=== PATIENT | female | born 1945 | race Caucasian/White ===

== ENCOUNTER 2016-12-03 06:43 | Day surgery (SDC) | payer MEDICARE ==
[2016-12-03] MEDS ORDERED: Lactated Ringers 1,000 ML IV SCH (07:30)
[2016-12-03] MEDS ORDERED: fentaNYL 100 MCG/2 ML SDV ONE (07:35)
[2016-12-03] MEDS ORDERED: Propofol 200 MG/20 ML SDV ONE ×2 (07:35→08:51)
[2016-12-03] MEDS ORDERED: Midazolam 1 MG/ML 2 ML SDV ONE (07:35)
[2016-12-03 10:32] VITALS: BP 145/73
--- NOTE | 2016-12-03 14:48 | OR ---
DATE OF PROCEDURE: 12/03/2016 PREOPERATIVE DIAGNOSIS: History of adenomatous colon polyps. POSTOPERATIVE DIAGNOSES: Diverticulosis; small colon polyps, 10 cm from the anal verge; history of adenomatous polyps. PROCEDURE: Colonoscopy to the cecum with biopsy resection of the small polyp at 10 cm from the anal verge. ANESTHESIA: IV anesthesia with monitored anesthesia care. INDICATIONS: This 71-year-old white female is here for a colonoscopy. Her last colonoscopic exam was done about three years ago. That just showed diverticulosis. A year prior to that, multiple polyps were removed, primarily hyperplastic. However, there were also adenomas polyps involved. I counseled her for a colonoscopy with possible biopsy and/or polypectomy including risks alternatives, and she gave her informed consent to proceed. PROCEDURE IN DETAILS: The patient was placed in the left lateral decubitus position. IV anesthesia was administered by the Anesthesia Service. Time-out was held. A rectal exam was performed, which was unremarkable. The flexible video Olympus colonoscope was introduced through her anus, up her rectum, and out her colon all way to the cecum. To accomplish this, we had to place her supine. Once the cecum was reached, the scope was slowly withdrawn examining the mucosa throughout. We saw a few scattered diverticula. There was no bleeding or inflammation associated with any of them. At about 10 cm from anal verge, we saw a few polyps which were removed with the biopsy forceps. It appeared to be hyperplastic and she has had in the past. The scope was retroflexed in the rectum with the most distal rectum appearing unremarkable. The scope was straightened and removed. She tolerated the procedure well. Lamont Fragoso MD /[id number] ANN
== END 2016-12-03 10:30 | disposition home or self-care (01) ==
LOC: JP.SDS 06:43
PROVIDERS: ATTEND Surgery
PROC: 0DJD8ZZ Inspection of Lower Intestinal Tract, Via Natural or Artificial Opening Endoscopic (ICD-10-PCS; principal; 2016-12-03)
DX: Z86.010 Personal history of colon polyps (principal); K63.5 Polyp of colon; K57.30 Diverticulosis of large intestine without perforation or abscess without bleeding; Z88.0 Allergy status to penicillin; Z88.1 Allergy status to other antibiotic agents; Z88.2 Allergy status to sulfonamides
CPT/HCPCS: 45378; J2250; J2704; J3010; J7120; 88305

== ENCOUNTER 2017-02-25 16:13 | Emergency (ER) | payer MEDICARE ==
[2017-02-25 16:28] VITALS: BP 127/75
--- NOTE | 2017-02-25 16:45 | EDM.PDOC ---
ED HPI GENERAL MEDICAL PROBLEM - General Chief Complaint: Lower Extremity Injury/Pain Stated Complaint: LT BIG TOE PAIN/PUS Time Seen by Provider: 02/25/17 16:30 Source of Information: Reports: Patient History Limitations: Reports: No Limitations - History of Present Illness INITIAL COMMENTS - FREE TEXT/NARRATIVE: 71 yo female recently tx'd by podiatry for bilateral ingrown toenails. Here now to make sure they are not getting infected. Onset: Gradual Duration: Day(s):, Getting Worse (?) Location: Reports: Lower Extremity, Left, Lower Extremity, Right Quality: Reports: Dull Severity: Mild Improves with: Reports: Immobilization Worsens with: Reports: Movement (or bumping) Context: Reports: Other (ingrown toenail surgery bilat.) Associated Symptoms: Reports: No Other Symptoms Treatments MARGARINE MAKER: Reports: Acetaminophen Left Feet Pain Score (Numeric/FACES): 6 - Related Data Allergies Allergy/AdvReac Type Severity Reaction Status Date / Time oxytetracycline Allergy Cannot Verified 12/03/16 07:36 [From Terramycin] Remember oxytetracycline HCl Allergy Cannot Verified 12/03/16 07:36 [From Terramycin] Remember Penicillins Allergy Cannot Verified 12/03/16 07:36 Remember streptomycin [Streptomycin] Allergy Cannot Verified 12/03/16 07:36 Remember Sulfa (Sulfonamide Allergy Cannot Verified 12/03/16 07:36 Antibiotics) Remember Home Meds: Home Meds Albuterol [Ventolin HFA] 2 puff INH Q6HR PRN 03/07/14 [History] Ascorbic Acid [Vitamin C] 500 mg PO BID 03/07/14 [History] Aspirin [Low Dose Aspirin EC] 2 tab PO DAILY 03/07/14 [History] Carbidopa/Levodopa [Sinemet Cr 25-100 mg] 2 tab PO BEDTIME 03/07/14 [History] Cyanocobalamin (Vitamin B-12) [Vitamin B-12] 1,000 mcg SL DAILY 03/07/14 [ History] Furosemide 1 tab PO DAILY 03/07/14 [History] Metoprolol Tartrate [Lopressor] 25 mg PO Q12HR 03/07/14 [History] [place]-3 Fatty Acids [[place]-3] 1,000 mg PO BID 03/07/14 [History] Potassium Chloride [Klor-Con M20] 20 meq PO DAILY 03/07/14 [History] Simvastatin [Zocor] 40 mg PO BEDTIME 03/07/14 [History] Clopidogrel Bisulfate [Clopidogrel] 75 mg PO DAILY 07/08/14 [History] Acetaminophen [Tylenol Extra Strength] 1 - 2 tab PO Q6H PRN 12/01/16 [History] Cholecalciferol (Vitamin D3) [Vitamin D3] 400 units PO DAILY 12/01/16 [History] Nitroglycerin [Nitrostat] 0.4 mg SL ASDIRECTED PRN 12/01/16 [History] Nystatin [Nystatin Oint] 1 applic TOP BID 12/01/16 [History] Pregabalin [Lyrica] 25 mg PO BID 02/25/17 [History] Tiotropium [Spiriva] 18 mcg INH BID 02/25/17 [History] Past Medical History HEENT History: Reports: Cataract Cardiovascular History: Reports: Stents Gastrointestinal History: Reports: Other (See Below) Other Gastrointestinal History: ulcer Genitourinary History: Reports: Urinary Incontinence, Other (See Below) Other Genitourinary History: states one functioning kidney pessary implant 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 Musculoskeletal History: Reports: Arthritis, Other (See Below) Other Musculoskeletal History: plantar facisitis djd Dermatologic History: Reports: None - Infectious Disease History Infectious Disease History: Reports: Chicken Pox, Measles, Mumps - Past Surgical History HEENT Surgical History: Reports: Tonsillectomy Female Surgical History: Reports: Tubal Ligation, Other (See Below) Social & Family History - Tobacco Use Smoking Status *Q: Former Smoker Years of Tobacco use: 35 Used Tobacco, but Quit: Yes Month Tobacco Last Used: years ago Second Hand Smoke Exposure: No - Caffeine Use Caffeine Use: Reports: Coffee - Alcohol Use Days Per Week of Alcohol Use: 0 - Recreational Drug Use Recreational Drug Use: No Review of Systems - Review of Systems Review Of Systems: See Below Constitutional: Reports: No Symptoms Musculoskeletal: Reports: Foot Pain, Other (Both great toes are tender.) Skin: Reports: Other (purplish discoloration since surgery) Neurological: Reports: No Symptoms ED EXAM, GENERAL - Physical Exam Exam: See Below Exam Limited By: No Limitations General Appearance: Alert, WD/WN, No Apparent Distress Extremities: Normal Inspection, Normal Range of Motion, No Pedal Edema, Other ( medial and lateral edges of both great toenails removed. Some purplish discoloration. No erythema. No increased warmth. ) Neurological: Alert, Oriented, CN II-XII Intact, No Motor/Sensory Deficits Psychiatric: Normal Affect, Normal Mood Skin Exam: Warm, Dry, Intact, Normal Color, No Rash Lymphatic: No Adenopathy Course - Vital Signs Last Recorded V/S: Last Vital Signs Temp 35.8 C 02/25/17 16:25 Pulse 59 L 02/25/17 16:25 Resp 16 02/25/17 16:25 BP 127/75 02/25/17 16:25 Pulse Ox 97 02/25/17 16:25 Departure - Departure Time of Disposition: 16:44 Disposition: Home, Self-Care 01 Condition: good Clinical Impression: Encounter for wound re-check - Discharge Information Referrals: Robinson Sun MD [Primary Care Provider] - Forms: ED Department Discharge Additional Instructions: Continue present cares. Recheck for increased warmth or bright redness.
== END 2017-02-25 16:45 | disposition home or self-care (01) ==
LOC: JP.ED 16:13
DX: Z51.89 Encounter for other specified aftercare (principal); Z87.891 Personal history of nicotine dependence; Z98.51 Tubal ligation status; Z79.899 Other long term (current) drug therapy; Z88.2 Allergy status to sulfonamides; Z88.1 Allergy status to other antibiotic agents; Z98.890 Other specified postprocedural states
CPT/HCPCS: 99282; 99283

== ENCOUNTER 2020-12-14 13:11 | Emergency (ER) | payer MEDICARE ==
[2020-12-14 13:41] VITALS: BP 106/63; PULSE 59
--- NOTE | 2020-12-14 13:57 | EDM.PDOC ---
ED HPI GENERAL MEDICAL PROBLEM - General Chief Complaint: Chest Pain Stated Complaint: CHEST PAIN EARLIER Time Seen by Provider: 12/14/20 13:35 Source of Information: Reports: Patient History Limitations: Reports: No Limitations - History of Present Illness INITIAL COMMENTS - FREE TEXT/NARRATIVE: Patient presents today with concerns about lower sternal chest pain--described as "bubble" sensation. She states that when it occurs she usually burps and its gone but she states that did not happen. She states she was sitting on the couch, doing nothing when it occurred. She reports after NTG did not seem to help she got up and walked outside in yard, burped a couple of times and pain went away. She denies any associated symptoms PMH--smoker/COPD-wheezing, peripheral neuropathy, OA/DJD, PAD (hx fem-pop on L- LE), HLP, HTN, restless legs, leg edema Meds--spiriva, simvistatin, pregabatin, k-dur, omega 3 FA, NTG, nystatin, metoprolol tartate, furosemide, B12, clopidogrel, D3, sinemet, ASA, vit C, albuterol inhaler Allergies--reviewed in the ERM Tob--<1/2 ppd EtOH/Drugs--denies --no history of COVID infection; reports having received both doses of her COVID vaccination Onset: Today Onset Date: 12/14/20 Onset Time: 10:30 Duration: Hour(s):, Resolved Prior to Arrival (lasted approx 15 minutes, resolved after getting up walking and burping) Location: Reports: Chest (lower sternal) Quality: Reports: Pressure (felt like a "bubble") Severity: Mild Associated Symptoms: Reports: No Other Symptoms Treatments OPS ANALYST: Reports: Nitroglycerin (no change in symptoms) - Related Data Allergies Allergy/AdvReac Type Severity Reaction Status Date / Time oxytetracycline Allergy Cannot Verified 12/14/20 13:43 [From Terramycin] Remember oxytetracycline HCl Allergy Cannot Verified 12/14/20 13:43 [From Terramycin] Remember Penicillins Allergy Cannot Verified 12/14/20 13:43 Remember streptomycin [Streptomycin] Allergy Cannot Verified 12/14/20 13:43 Remember Sulfa (Sulfonamide Allergy Cannot Verified 12/14/20 13:43 Antibiotics) Remember Home Meds: Home Meds Albuterol [Ventolin HFA] 2 puff INH Q6HR PRN 03/07/14 [History] Ascorbic Acid [Vitamin C] 500 mg PO BID 03/07/14 [History] Aspirin [Low Dose Aspirin EC] 2 tab PO DAILY 03/07/14 [History] Carbidopa/Levodopa [Sinemet Cr 25-100 mg] 2 tab PO BEDTIME 03/07/14 [History] Cyanocobalamin (Vitamin B-12) [Vitamin B-12] 1,000 mcg SL DAILY 03/07/14 [History] Furosemide 1 tab PO DAILY 03/07/14 [History] Metoprolol Tartrate [Lopressor] 25 mg PO Q12HR 03/07/14 [History] [place]-3 Fatty Acids [[place]-3] 1,000 mg PO BID 03/07/14 [History] Potassium Chloride [Klor-Con M20] 20 meq PO DAILY 03/07/14 [History] Simvastatin [Zocor] 40 mg PO BEDTIME 03/07/14 [History] Clopidogrel Bisulfate [Clopidogrel] 75 mg PO DAILY 07/08/14 [History] Acetaminophen [Tylenol Extra Strength] 1 - 2 tab PO Q6H PRN 12/01/16 [History] Cholecalciferol (Vitamin D3) [Vitamin D3] 400 units PO DAILY 12/01/16 [History] Nitroglycerin [Nitrostat] 0.4 mg SL ASDIRECTED PRN 12/01/16 [History] Nystatin [Nystatin Oint] 1 applic TOP BID 12/01/16 [History] Pregabalin [Lyrica] 25 mg PO BID 02/25/17 [History] Tiotropium [Spiriva] 18 mcg INH BID 02/25/17 [History] Past Medical History HEENT History: Reports: Cataract Cardiovascular History: Reports: Stents Gastrointestinal History: Reports: Other (See Below) Other Gastrointestinal History: ulcer Genitourinary History: Reports: Urinary Incontinence, Other (See Below) Other Genitourinary History: states one functioning kidney pessary implant 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 Musculoskeletal History: Reports: Arthritis, Other (See Below) Other Musculoskeletal History: plantar facisitis djd Dermatologic History: Reports: None - Infectious Disease History Infectious Disease History: Reports: Chicken Pox, Measles, Mumps - Past Surgical History HEENT Surgical History: Reports: Tonsillectomy GI Surgical History: Reports: None, Appendectomy Female Surgical History: Reports: Tubal Ligation, Other (See Below) Other Female Surgeries/Procedures: branch major mild duct removed Social & Family History - Caffeine Use Caffeine Use: Reports: Coffee ED ROS GENERAL - Review of Systems Review Of Systems: Comprehensive ROS is negative, except as noted in HPI. Constitutional: Reports: No Symptoms HEENT: Reports: No Symptoms Respiratory: Reports: No Symptoms. Denies: Shortness of Breath, Wheezing, Cough Cardiovascular: Reports: Chest Pain (lower sternal--felt like a "bubble"). Denies: Dyspnea on Exertion, Edema, Lightheadedness, Palpitations Endocrine: Reports: No Symptoms GI/Abdominal: Reports: No Symptoms : Reports: No Symptoms Musculoskeletal: Reports: No Symptoms Skin: Reports: No Symptoms Neurological: Reports: No Symptoms Psychiatric: Reports: No Symptoms Hematologic/Lymphatic: Reports: No Symptoms Immunologic: Reports: No Symptoms ED EXAM, GENERAL - Physical Exam Exam: See Below Exam Limited By: No Limitations General Appearance: Alert, WD/WN, No Apparent Distress Eye Exam: Bilateral Eye: EOMI, Normal Inspection, PERRL Ears: Normal External Exam Nose: Normal Inspection Throat/Mouth: Normal Inspection, Normal Oropharynx Head: Atraumatic, Normocephalic Neck: Normal Inspection, Supple, Non-Tender, Full Range of Motion Respiratory/Chest: No Respiratory Distress, No Accessory Muscle Use, Wheezing (expiratory wheeze on normal respirations--mild) Cardiovascular: Normal Peripheral Pulses, Regular Rate, Rhythm, No Edema, No Murmur Peripheral Pulses: 2+: Radial (L), Radial (R) GI/Abdominal: Normal Bowel Sounds, Soft, Non-Tender (Female) Exam: Deferred Rectal (Female) Exam: Deferred Back Exam: Normal Inspection Extremities: Normal Inspection, No Pedal Edema, Normal Capillary Refill Neurological: Alert, Oriented, Normal Cognition, No Motor/Sensory Deficits Psychiatric: Normal Affect, Normal Mood Skin Exam: Warm, Dry, Intact, Normal Color #1 Interpretation EKG Date: 12/14/20 Time: 13:23 Rhythm: Other (sinus raiza, nonspecific intraventricular conduction delay) [place]: Normal P-Wave: Present (OR-196) QRS: Normal (QRS-116) ST-T: Normal QT: Normal (QT/QTc-442/438) Comparison: NA - No Prior EKG EKG Interpretation Comments: read by this physician at 1331, no STEMI noted Course - Vital Signs Text/Narrative:: 1458--labs/ekg have been reviewed. trop < 0.017 4 hours after CP/pressure incident thus unlikely cardiac in nature; additionally her description is low suspiscion for cardiac pain but more likely to be GERD/gas related. recommend gas-x for gas related symptoms, may want to d/w PCM restart of GERD/reflux medication--will give start up rx now but she will need to d/w PCM for further/ongoing medication management. verbalized understanding/agreement with plan of care Last Recorded V/S: Last Vital Signs Temp 97.6 F 12/14/20 13:50 Pulse 59 L 12/14/20 13:50 Resp 14 12/14/20 13:50 BP 106/63 12/14/20 13:50 Pulse Ox 95 12/14/20 13:50 - Orders/Labs/Meds Orders: Active Orders 24 hr Category Date Time Status Cardiac Monitoring [RC] .As Directed Care 12/14/20 13:45 Active EKG Documentation Completion [RC] ASDIRECTED Care 12/14/20 13:46 Active Pulse Oximetry [RC] CONTINUOUS Care 12/14/20 13:45 Active EKG 12 Lead [EK] Stat Ther 12/14/20 13:46 Ordered Labs: Laboratory Tests 12/14/20 12/14/20 Range/Units 01:56 13:56 WBC 7.0 (4.5-11.0) K/uL RBC 4.86 (3.30-5.50) M/uL Hgb 15.3 H (12.0-15.0) g/dL Hct 46.7 (36.0-48.0) % MCV 96 (80-98) fL MCH 32 H (27-31) pg MCHC 33 (32-36) % Plt Count 255 (150-400) K/uL Neut % (Auto) 50 (36-66) % Lymph % (Auto) 38 (24-44) % [place] % (Auto) 10 H (2-6) % Eos % (Auto) 1 L (2-4) % Baso % (Auto) 0 (0-1) % Sodium 138 L (140-148) mmol/L Potassium 4.4 (3.6-5.2) mmol/L Chloride 102 (100-108) mmol/L Carbon Dioxide 29 (21-32) mmol/L Anion Gap 11.4 (5.0-14.0) mmol/L BUN 9 (7-18) mg/dL Creatinine 1.0 (0.6-1.0) mg/dL Est Cr Clr Drug Dosing 44.80 mL/min Estimated GFR (MDRD) 54 L (>60) Glucose 102 (74-106) mg/dL Calcium 9.6 (8.5-10.1) mg/dL Magnesium 2.3 (1.8-2.4) mg/dL Total Bilirubin 0.5 (0.2-1.0) mg/dL AST 31 (15-37) U/L ALT 33 (12-78) U/L Alkaline Phosphatase 48 (46-116) U/L Troponin I < 0.017 (0.000-0.056) ng/mL Total Protein 6.2 L (6.4-8.2) g/dL Albumin 3.5 (3.4-5.0) g/dL Globulin 2.7 (2.3-3.5) g/dL Albumin/Globulin Ratio 1.3 (1.2-2.2) Departure - Departure Time of Disposition: 15:01 Disposition: Home, Self-Care 01 Condition: Good Clinical Impression: Gassy chest pain Instructions: Nonspecific Chest Pain, Adult, [id number], Heartburn, [id number] Referrals: Jay Houston MD [Primary Care Provider] - Forms: ED Department Discharge Additional Instructions: You may want to get GAS-X over the counter for episodes as you describe today, as you noted getting up and walking may help move gas--help with burping to relieve pressure symptoms. Additionally, you are noted not to be on anything for reflux or heartburn--you may consider starting omeprazole, esomeprazole, lansoprazole--all of which are available over the counter. You can ask your pharmacist to help you locate them on the shelf Follow up with your family doctor or primary care provider should you have any further questions or concerns Sepsis Event Note (ED) - Focused Exam Vital Signs: Vital Signs Temp Pulse Resp BP Pulse Ox 12/14/20 13:50 97.6 F 59 L 14 106/63 95 12/14/20 13:30 97.6 F 59 L 14 106/63 95 - My Orders Last 24 Hours: My Active Orders 12/14/20 13:45 Cardiac Monitoring [RC] .As Directed Pulse Oximetry [RC] CONTINUOUS 12/14/20 13:46 EKG Documentation Completion [RC] ASDIRECTED EKG 12 Lead [EK] Stat - Assessment/Plan Last 24 Hours: My Active Orders 12/14/20 13:45 Cardiac Monitoring [RC] .As Directed Pulse Oximetry [RC] CONTINUOUS 12/14/20 13:46 EKG Documentation Completion [RC] ASDIRECTED EKG 12 Lead [EK] Stat
== END 2020-12-14 15:27 | disposition home or self-care (01) ==
LOC: JP.ED 13:11
DX: R07.89 Other chest pain (principal); M19.90 Unspecified osteoarthritis, unspecified site; Z90.49 Acquired absence of other specified parts of digestive tract; Z88.2 Allergy status to sulfonamides; Z88.0 Allergy status to penicillin; Z88.8 Allergy status to other drugs, medicaments and biological substances; Z79.82 Long term (current) use of aspirin; Z79.899 Other long term (current) drug therapy
CPT/HCPCS: 36415; 80053; 83735; 84484; 85025; 93005; 99283; 99285-25

== ENCOUNTER 2021-01-18 04:24 | Emergency (ER) | payer MEDICARE ==
--- NOTE | 2021-01-18 04:56 | EDM.PDOC ---
ED HPI GENERAL MEDICAL PROBLEM - General Chief Complaint: ENT Problem Stated Complaint: NOSE BLEED Time Seen by Provider: 01/18/21 04:32 Source of Information: Reports: Patient, EMS History Limitations: Reports: No Limitations - History of Present Illness INITIAL COMMENTS - FREE TEXT/NARRATIVE: Krysten is a 75-year-old female presenting to the ED via [facility] for evaluation of epistaxis from the right naris. The patient reports the bleeding started about 5 or 6 minutes prior to calling EMS. She is on Plavix and started to hemorrhage from her nose. She denies any trauma to the nose. She denies any picking. Does not have a history for epistaxis prior to tonight. She does smoke. She is on Plavix for ischemia. 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: Reports: Other (see below) Other 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: nose clamp denies pain Pain Score (Numeric/FACES): 0 - Related Data Allergies Allergy/AdvReac Type Severity Reaction Status Date / Time oxytetracycline Allergy Cannot Verified 01/18/21 04:28 [From Terramycin] Remember oxytetracycline HCl Allergy Cannot Verified 01/18/21 04:28 [From Terramycin] Remember Penicillins Allergy Cannot Verified 01/18/21 04:28 Remember streptomycin [Streptomycin] Allergy Cannot Verified 01/18/21 04:28 Remember Sulfa (Sulfonamide Allergy Cannot Verified 01/18/21 04:28 Antibiotics) Remember Home Meds: Home Meds Ascorbic Acid [Vitamin C] 500 mg PO BID 03/07/14 [History] Aspirin [Low Dose Aspirin EC] 81 mg PO DAILY 03/07/14 [History] Carbidopa/Levodopa [Sinemet Cr 25-100 mg] 2 tab PO BEDTIME 03/07/14 [History] Cyanocobalamin (Vitamin B-12) [Vitamin B-12] 1,000 mcg SL DAILY 03/07/14 [History] Furosemide 40 mg PO DAILY 03/07/14 [History] Metoprolol Tartrate [Lopressor] 25 mg PO Q12HR 03/07/14 [History] [place]-3 Fatty Acids [[place]-3] 1,000 mg PO BID 03/07/14 [History] Potassium Chloride [Klor-Con M20] 20 meq PO DAILY 03/07/14 [History] Simvastatin [Zocor] 40 mg PO BEDTIME 03/07/14 [History] Clopidogrel Bisulfate [Clopidogrel] 75 mg PO DAILY 07/08/14 [History] Acetaminophen [Tylenol Extra Strength] 1 - 2 tab PO Q6H PRN 12/01/16 [History] Cholecalciferol (Vitamin D3) [Vitamin D3] 400 units PO DAILY 12/01/16 [History] Nitroglycerin [Nitrostat] 0.4 mg SL ASDIRECTED PRN 12/01/16 [History] Nystatin [Nystatin Oint] 1 applic TOP BID PRN 12/01/16 [History] Tiotropium [Spiriva] 18 mcg INH BID 02/25/17 [History] traMADol [Ultram] 50 mg PO ASDIRECTED PRN 01/18/21 [History] Past Medical History HEENT History: Reports: Cataract Cardiovascular History: Reports: Stents Gastrointestinal History: Reports: Other (See Below) Other Gastrointestinal History: ulcer Genitourinary History: Reports: Urinary Incontinence, Other (See Below) Other Genitourinary History: 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 Musculoskeletal History: Reports: Arthritis, Other (See Below) Other Musculoskeletal History: plantar facisitis djd Dermatologic History: Reports: None - Infectious Disease History Infectious Disease History: Reports: Chicken Pox, Measles, Mumps - Past Surgical History HEENT Surgical History: Reports: Tonsillectomy GI Surgical History: Reports: None, Appendectomy Female Surgical History: Reports: Tubal Ligation, Other (See Below) Other Female Surgeries/Procedures: branch major mild duct removed Social & Family History - Tobacco Use Tobacco Use Status *Q: Light Tobacco User Years of Tobacco use: 30 Packs/Tins Daily: 0.2 - Caffeine Use Caffeine Use: Reports: Coffee - Recreational Drug Use Recreational Drug Use: No ED ROS ENT - Review of Systems Review Of Systems: See Below Constitutional: Reports: No Symptoms HEENT: Reports: Nosebleed Respiratory: Reports: No Symptoms Cardiovascular: Reports: No Symptoms Endocrine: Reports: No Symptoms GI/Abdominal: Reports: No Symptoms : Reports: No Symptoms Musculoskeletal: Reports: No Symptoms Skin: Reports: No Symptoms Neurological: Reports: No Symptoms Psychiatric: Reports: No Symptoms Hematologic/Lymphatic: Reports: No Symptoms Immunologic: Reports: No Symptoms ED EXAM, ENT - Physical Exam Exam: See Below Exam Limited By: No Limitations General Appearance: Alert, Anxious, Mild Distress Eye Exam: Bilateral Eye: EOMI, PERRL Nose: Active Bleeding (Active bleeding from the anterior nasal septum in the right naris. After placing the Rhino Rocket she started to bleed from the left nares too.). No: Septal Hematoma Mouth/Throat: Bleeding (Bleeding noted from the nasopharynx. Blood and clots in the mouth.) Head: Atraumatic, Normocephalic Neck: Normal Inspection, Supple Respiratory/Chest: No Respiratory Distress, Lungs Clear, Normal Breath Sounds Cardiovascular: Normal Peripheral Pulses, Regular Rate, Rhythm, No Murmur GI/Abdominal: Normal Bowel Sounds, Soft, Non-Tender Neurological: Alert, Oriented, Normal Cognition, No Motor/Sensory Deficits Skin: Warm, Dry, Normal Color ED ENT PROCEDURES - Epistaxis Procedure Indication: Epistaxis, Uncontrolled Recent anticoagulants/antiplatlets: Yes Uncontrolled HTN: No Recent septal/nasal surgery: No Site of bleeding: Right Nare, Left Nare, Anterior Clearing of clots: Patient Blew Nose Ice pack to area: No Anterior Packing: Inflatable Nasal Tampon (7.5 cm Rhino Rocket's soaked in tranexamic acid installed into both nostrils) Posterior packing: Long Inflatable Nasal Tampon Complications: No Course - Vital Signs Last Recorded V/S: Last Vital Signs Temp 35.6 C L 01/18/21 04:39 Pulse 62 01/18/21 06:30 Resp 16 01/18/21 06:23 BP 184/78 H 01/18/21 06:30 Pulse Ox 96 01/18/21 06:23 - Orders/Labs/Meds Labs: Laboratory Tests 01/18/21 Range/Units 05:52 WBC 8.4 (4.5-11.0) K/uL RBC 4.97 (3.30-5.50) M/uL Hgb 15.6 H (12.0-15.0) g/dL Hct 47.7 (36.0-48.0) % MCV 96 (80-98) fL MCH 31 (27-31) pg MCHC 33 (32-36) % Plt Count 280 (150-400) K/uL Meds: Medications Discontinued Medications Generic Name Dose Route Start Last Admin Trade Name Freq PRN Reason Stop Dose Admin Metoprolol Succinate 50 mg 01/18/21 06:24 01/18/21 06:30 Metoprolol Succinate 50 Mg Tab.Er PO 01/18/21 06:25 50 mg ONETIME ONE Administration Tranexamic Acid 500 mg 01/18/21 04:32 01/18/21 04:49 Tranexamic Acid 1,000 Mg/10 Ml Amp TOP 01/18/21 04:33 500 mg ONETIME ONE Administration - Re-Assessments/Exams Free Text/Narrative Re-Assessment/Exam: 01/18/21 05:[address] a 7.5 cm Rhino Rocket soaked in tranexamic acid into each of the naris. Patient will be observed for any further bleeding. The right naris Rhino Rocket is inflated to 7-1/2 cc in the left naris is inflated to 5 cc. 01/18/21 06:16 the patient continues to have sufficient bleeding down the back of the throat arising from the right naris. I discussed the case with Dr. Moya from otorhinolaryngology at [facility] who recommended repositioning the Rhino Rocket's and adding air to see if we can get this under control. If unsuccessful I would have to send her to the emergency room at [place] where he would be able to intervene. Labs are returned and she has a hemoglobin of 15.6. She did divulge that she is taking an 81 mg aspirin and Plavix which is why it is much more difficult to get the bleeding under control. Although I could see bleeding in the anterior septum, she is also passing blood down the posterior pharynx likely arising from a posterior bleed too. 01/18/21 06:39 the patient was given metoprolol 50 mg p.o. as she was overdue for her morning dose of 25 mg and was sufficiently hypertensive at 180/98. Her blood pressure did start to come down, however, the bleeding has not subsided and she is still spitting up fairly large clots and blood. With this I elected to arrange for the patient to be transferred to [facility] for ENT evaluation. Patient was accepted in transfer by Dr. Jesus in the ER and will arrange for [facility] to transfer the patient by ground. Departure - Departure Time of Disposition: 06:41 Disposition: DC/Tfer to [facility] Clinical Impression: Epistaxis, Chronic anticoagulation - Discharge Information Referrals: PCP,None [Primary Care Provider] - Forms: ED Department Discharge Sepsis Event Note (ED) - Evaluation Sepsis Screening Result: No Definite Risk - Focused Exam Vital Signs: Vital Signs Temp Pulse Pulse Resp BP BP Pulse Ox 01/18/21 06:30 62 184/78 H 01/18/21 06:23 60 16 184/78 H 96 01/18/21 04:39 35.6 C L 56 L 14 160/80 H 94 L 01/18/21 04:34 35.6 C L 56 L 14 160/80 H 94 L - Problem List & Annotations (1) Chronic anticoagulation SNOMED Code(s): 807047661 Code(s): Z79.01 - CUSTODIAL (CURRENT) USE OF ANTICOAGULANTS Status: Chronic Priority: Medium Current Visit: Yes (2) Epistaxis SNOMED Code(s): 249790870 Code(s): R04.0 - EPISTAXIS Status: Acute Priority: Medium Current Visit: Yes - Problem List Review Problem List Initiated/Reviewed/Updated: Yes
[2021-01-18] MEDS ORDERED: Metoprolol Succinate 50 MG Tab.ER PO ONE (06:24)
[2021-01-18] MEDS ORDERED: hydrALAZINE 20 MG/ML SDV IVPUSH ONE (06:56)
[2021-01-18] MEDS ORDERED: Sodium Chloride 0.9% 10 ML Syringe FLUSH PRN (06:56)
[2021-01-18 07:12] VITALS: BP 167/73; PULSE 68
[2021-01-18] MEDS ORDERED: traMADol 50 MG Tab PO ONE (07:16)
== END 2021-01-18 07:25 ==
LOC: JP.ED 04:24
DX: R04.0 Epistaxis (principal); M19.90 Unspecified osteoarthritis, unspecified site; Z79.01 Long term (current) use of anticoagulants; Z88.8 Allergy status to other drugs, medicaments and biological substances; Z88.0 Allergy status to penicillin; Z88.1 Allergy status to other antibiotic agents; Z88.2 Allergy status to sulfonamides; Z79.82 Long term (current) use of aspirin; Z95.5 Presence of coronary angioplasty implant and graft; Z72.0 Tobacco use
CPT/HCPCS: 30903; 36415; 85027; 96374; 99285; A9270; J0360

== ENCOUNTER 2023-07-26 05:18 | Emergency (ER) | payer MEDICARE ==
[2023-07-26] MEDS ORDERED: Tranexamic Acid 1,000 MG/10 ML Vial TOP ONE (05:19)
[2023-07-26 06:11] VITALS: BP 152/68; PULSE 51
[2023-07-26 06:18] LABS: BASOPHILS ABSOLUTE AUTO 0.03 K/uL (0.00-0.10); BASOPHILS PERCENT AUTO 0.4 % (0.1-1.3); EOSINOPHILS ABSOLUTE AUTO 0.11 K/uL (0.00-0.40); EOSINOPHILS PERCENT AUTO 1.6 % (0.0-5.4); HEMATOCRIT 46.4 % (34.3-46.0); HEMOGLOBIN 15.5 g/dL (11.2-15.5); IMMATURE GRAN PERCENT AUTO 0.1 % (0.0-0.7); LYMPHOCYTES ABSOLUTE AUTO 2.44 K/uL (0.8-3.3); LYMPHOCYTES PERCENT AUTO 36.6 % (11.4-47.7); MEAN CORPUSCULAR HGB CONC 33.4 g/dL (31.6-35.5); MEAN CORPUSCULAR VOLUME 95.7 fL (81.4-99.0); MONOCYTES ABSOLUTE AUTO 0.67 K/uL (0.20-0.90); NEUTROPHILS ABSOLUTE AUTO 3.41 K/uL (1.0-7.6); NEUTROPHILS PERCENT AUTO 51.3 % (40.0-78.1); PLATELET COUNT,PLT 208 K/uL (130-375); RED BLOOD CELL COUNT 4.85 M/uL (3.77-5.24); WHITE BLOOD CELL COUNT,WBC 6.7 K/uL (3.2-11.0)
[2023-07-26 06:19] LABS: IMMATURE GRAN ABSOLUTE AUTO 0.01 K/uL (0.00-0.23)
== END 2023-07-26 06:44 | disposition home or self-care (01) ==
LOC: JP.ED 05:18
DX: R04.0 Epistaxis (principal); I10 Essential (primary) hypertension; E78.00 Pure hypercholesterolemia, unspecified; I25.2 Old myocardial infarction; M19.90 Unspecified osteoarthritis, unspecified site; F17.210 Nicotine dependence, cigarettes, uncomplicated; Z79.82 Long term (current) use of aspirin; Z79.01 Long term (current) use of anticoagulants; Z79.899 Other long term (current) drug therapy; Z88.0 Allergy status to penicillin; Z88.1 Allergy status to other antibiotic agents; Z88.2 Allergy status to sulfonamides
CPT/HCPCS: 30901; 30903; 36415; 85025; 99283; 99284